=== PATIENT | female | born 1935 | race Caucasian/White ===

== ENCOUNTER 2022-06-23 17:28 | Inpatient (IN) ==
[2022-06-23] MEDS ORDERED: IOPAMIDOL 100 ML BOTTLE IV ONE (17:29)
[2022-06-23] MEDS ORDERED: PANTOPRAZOLE 40 MG VIAL IV ONE (19:04)
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
[2022-06-23] MEDS ORDERED: 0.9 % SODIUM CHLORIDE 250 ML IV SCH ×3 (19:45→20:30)
[2022-06-23 20:16] LABS: POC Calcium, Ionized 1.28 (1.16-1.32); POC Creatinine 0.7 (0.6-1.2); POC Potassium 4.1 (3.3-5.1)
[2022-06-23 20:18] LABS: Basophils # (Auto) 0.07 K/mcL (0.00-0.30); Basophils % (Auto) 0.7 % (0.0-2.0); Eosinophils # (Auto) 0.02 K/mcL (0.00-0.70); Eosinophils % (Auto) 0.2 % (0.0-7.0); Hematocrit 20.3 % (34.1-44.9); Hemoglobin 6.3 g/dL (11.2-15.7); Lymphocytes # (Auto) 2.79 K/mcL (1.50-4.80); Lymphocytes % (Auto) 26.5 % (15.5-49.0); Mean Cell Volume 95.8 fL (80.0-100.0); Mean Platelet Volume 9.9 fL (8.8-12.5); Monocytes # (Auto) 1.08 K/mcL (0.10-0.90); Monocytes % (Auto) 10.3 % (1.0-12.0); Neutrophils % (Auto) 61.1 % (38.0-78.0); Platelet Count 269 K/mcL (140-440); RBC 2.12 M/mcL (3.59-5.38); Red Cell Distribution Width 14.5 % (11.5-14.5); WBC 10.5 K/mcL (4.5-11.0)
[2022-06-23 20:31] LABS: ALT/SGPT 18 U/L (<40); AST/SGOT 21 U/L (<32); Albumin 3.8 gm/dL (3.2-5.2); Alkaline Phosphatase 76 U/L (39-117); Bilirubin,Direct < 0.2 mg/dL (0-0.3); Bilirubin,Total 0.3 mg/dL (0.1-1.0); Globulin 1.9 gm/dL (2.2-3.7)
[2022-06-24] MEDS ORDERED: MELATONIN 3 MG TABLET PO ONE (01:06)
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
[2022-06-24 03:35] LABS: Basophils # (Auto) 0.04 K/mcL (0.00-0.30); Basophils % (Auto) 0.6 % (0.0-2.0); Eosinophils # (Auto) 0.06 K/mcL (0.00-0.70); Eosinophils % (Auto) 0.9 % (0.0-7.0); Hematocrit 25.7 % (34.1-44.9); Hemoglobin 8.6 g/dL (11.2-15.7); Lymphocytes # (Auto) 2.21 K/mcL (1.50-4.80); Lymphocytes % (Auto) 32.3 % (15.5-49.0); Mean Cell Volume 90.2 fL (80.0-100.0); Mean Corpuscular HGB Conc 33.5 g/dL (31.0-36.0); Mean Platelet Volume 9.2 fL (8.8-12.5); Monocytes # (Auto) 0.84 K/mcL (0.10-0.90); Monocytes % (Auto) 12.3 % (1.0-12.0); Platelet Count 191 K/mcL (140-440); RBC 2.85 M/mcL (3.59-5.38); WBC 6.8 K/mcL (4.5-11.0)
[2022-06-24 07:15] LABS: Hematocrit 27.4 % (34.1-44.9); Hemoglobin 9.1 g/dL (11.2-15.7)
--- NOTE | 2022-06-24 10:05 | Emergency Department Note ---
Course Course Course Narrative: Patient is an 87-year-old female who was signed out to me by Dr. Mckeon. Patient presented with concerns for GI bleed and anemia. Her hemoglobin was 6.3. Patient was given a transfusion with 2 units of PRBCs. Patient was watched overnight and H&H was repeated multiple times. It was 8.6 and then 9.1. Transfer versus admission was pending at the time of signout. Vital Signs Vital signs: Vital Signs Temperature 98.0 F 06/23/22 17:29 Pulse Rate 120 H 06/23/22 17:29 Respiratory Rate 18 06/23/22 17:29 Blood Pressure 122/67 06/23/22 17:29 Pulse Oximetry (%) 93 06/23/22 17:29 Oxygen Delivery Method Room Air 06/23/22 17:29 Temperature 98.0 F 06/23/22 17:29 Pulse Rate 84 06/24/22 10:43 Respiratory Rate 17 06/23/22 20:46 Blood Pressure 112/66 06/24/22 10:16 Pulse Oximetry (%) 95 06/24/22 10:43 Oxygen Delivery Method Nasal Cannula 06/24/22 05:01 Oxygen Flow Rate (L/min) 1 06/24/22 05:01 MDM MDM Narrative Medical decision making narrative: Narrative: Patient is an 87-year-old female who presented due to GI bleed. At the time of signout plan for where patient would go was pending. I called and spoke to Dr. Mckeon who agreed to perform an endoscopy, but requested a hospitalist admit. I spoke to Dr. Mayer who has agreed to see and evaluate patient for admission. Lab Data 06/24/22 06:31 Labs: Lab Results 06/23/22 06/23/22 06/23/22 Range/Units 19:15 19:15 20:13 WBC 10.5 (4.5-11.0) K/mcL RBC 2.12 L (3.59-5.38) M/mcL Hgb 6.3 L* (11.2-15.7) g/dL Hct 20.3 L* (34.1-44.9) % POC Hct 18.0 L* (36-48) MCV 95.8 (80.0-100.0) fL MCH 29.7 (26.0-34.0) pg MCHC 31.0 (31.0-36.0) g/dL RDW 14.5 (11.5-14.5) % Plt Count 269 (140-440) K/mcL MPV 9.9 (8.8-12.5) fL Immature Gran % (Auto) 1.2 H (0.0-0.5) % Neut % (Auto) 61.1 (38.0-78.0) % Lymph % (Auto) 26.5 (15.5-49.0) % [place] % (Auto) 10.3 (1.0-12.0) % Eos % (Auto) 0.2 (0.0-7.0) % Baso % (Auto) 0.7 (0.0-2.0) % Lymph # (Auto) 2.79 (1.50-4.80) K/mcL [place] # (Auto) 1.08 H (0.10-0.90) K/mcL Eos # (Auto) 0.02 (0.00-0.70) K/mcL Baso # (Auto) 0.07 (0.00-0.30) K/mcL Immature Gran # 0.13 H (0.00-0.05) K/mcl Absolute Neutrophils 6.44 (1.80-8.00) K/mcL POC Sodium 139 (133-145) POC Potassium 4.1 (3.3-5.1) POC Chloride 104 (96-108) POC Total CO2 26.0 (22-30) POC BUN 31 H (6-20) POC Creatinine 0.7 (0.6-1.2) POC Glucose 112 H (70-105) POC WB Ioniz Calcium 1.28 (1.16-1.32) Total Bilirubin 0.3 (0.1-1.0) mg/dL Direct Bilirubin < 0.2 (0-0.3) mg/dL AST 21 (<32) U/L ALT 18 (<40) U/L Alkaline Phosphatase 76 (39-117) U/L Total Protein 5.7 L (5.9-8.4) gm/dL Albumin 3.8 (3.2-5.2) gm/dL Globulin 1.9 L (2.2-3.7) gm/dL 02/28/23 02/28/23 Range/Units 03:04 06:31 WBC 6.8 (4.5-11.0) K/mcL RBC 2.85 L (3.59-5.38) M/mcL Hgb 8.6 L 9.1 L (11.2-15.7) g/dL Hct 25.7 L 27.4 L (34.1-44.9) % POC Hct (36-48) MCV 90.2 (80.0-100.0) fL MCH 30.2 (26.0-34.0) pg MCHC 33.5 (31.0-36.0) g/dL RDW 14.0 (11.5-14.5) % Plt Count 191 (140-440) K/mcL MPV 9.2 (8.8-12.5) fL Immature Gran % (Auto) 0.9 H (0.0-0.5) % Neut % (Auto) 53.0 (38.0-78.0) % Lymph % (Auto) 32.3 (15.5-49.0) % [place] % (Auto) 12.3 H (1.0-12.0) % Eos % (Auto) 0.9 (0.0-7.0) % Baso % (Auto) 0.6 (0.0-2.0) % Lymph # (Auto) 2.21 (1.50-4.80) K/mcL [place] # (Auto) 0.84 (0.10-0.90) K/mcL Eos # (Auto) 0.06 (0.00-0.70) K/mcL Baso # (Auto) 0.04 (0.00-0.30) K/mcL Immature Gran # 0.06 H (0.00-0.05) K/mcl Absolute Neutrophils 3.63 (1.80-8.00) K/mcL POC Sodium (133-145) POC Potassium (3.3-5.1) POC Chloride (96-108) POC Total CO2 (22-30) POC BUN (6-20) POC Creatinine (0.6-1.2) POC Glucose (70-105) POC WB Ioniz Calcium (1.16-1.32) Total Bilirubin (0.1-1.0) mg/dL Direct Bilirubin (0-0.3) mg/dL AST (<32) U/L ALT (<40) U/L Alkaline Phosphatase (39-117) U/L Total Protein (5.9-8.4) gm/dL Albumin (3.2-5.2) gm/dL Globulin (2.2-3.7) gm/dL Discharge Plan Patient/Caregiver Discharge Instructions Pt seen by DAYCARE PROVIDER/PA only: Yes Clinical Impression: Acute upper gastrointestinal bleeding, ABLA (acute blood loss anemia), Hypotension Patient Disposition: Xfer As Inpt ([facility]) Follow up with: Shantal Rodrigez DO [Primary Care Provider] - Prescriptions: No Action pravastatin 40 mg tablet 40 mg PO QHS Qty: 90 1RF lisinopril 40 mg tablet 40 mg PO QDAY Qty: 90 1RF amlodipine 5 mg tablet 5 mg PO QDAY Qty: 90 1RF naproxen 500 mg tablet 250 mg PO BID PRN (Reason: Back Pain) aspirin 81 mg tablet,delayed release (DR/EC) 81 mg PO QDAY calcium carbonate 600 mg (1,500 mg) tablet 600 mg PO BID cholecalciferol (vitamin D3) 400 unit tablet 400 unit PO QDAY multivitamin 1 each PO QDAY gabapentin 100 mg capsule See Rx Instructions PO QDAY Qty: 90 2RF Rx Instructions: Take 1 cap QHS for 3 days Take 1 cap BID for 3 days, as tolerated Take 1 cap TID for 3 days, as tolerated acetaminophen [Tylenol] 325 mg tablet 325 mg PO Q6H PRN (Reason: Back Pain) tramadol 50 mg tablet 50 mg PO BID PRN (Reason: pain) Qty: 60 2RF famotidine [Pepcid] 20 mg tablet 20 mg PO BID Qty: 60 0RF pantoprazole [Protonix] 20 mg tablet,delayed release (DR/EC) 40 mg PO BID Qty: 120 0RF
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
[2022-06-24] MEDS ORDERED: ONDANSETRON 4 MG/2 ML VIAL IV PRN (13:58)
[2022-06-24] MEDS ORDERED: ACETAMINOPHEN 325 MG TABLET PO PRN (14:01)
[2022-06-24] MEDS: DEXTROSE 5%-LR 1,000 ML IV SCH (14:19)
[2022-06-24] MEDS ORDERED: 0.9 % SODIUM CHLORIDE 250 ML IV SCH (15:45)
[2022-06-24] MEDS: 0.9 % SODIUM CHLORIDE 10 ML SYRINGE IV SCH ×2 (15:45→20:24)
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
[2022-06-24] MEDS: PANTOPRAZOLE 40 MG VIAL IV SCH (16:27)
[2022-06-24] MEDS: SUCRALFATE 1 GM/10 ML ORAL.SUSP PO SCH ×2 (16:27→23:15)
--- NOTE | 2022-06-24 16:42 | XRay Report ---
CLINICAL INFORMATION: Preop COMPARISON: 06/21/2022 TECHNIQUE: Portable FINDINGS: Borderline cardiomegaly is unchanged. Moderate hiatal hernia again noted. Remaining mediastinum and pulmonary vessels are unremarkable. The lungs are clear. There are no effusions. IMPRESSION: No acute disease. Interpreted and Authenticated by: Kishore Ann 06/24/22
[2022-06-24 16:53] LABS: Basophils # (Auto) 0.06 K/mcL (0.00-0.30); Basophils % (Auto) 0.9 % (0.0-2.0); Eosinophils # (Auto) 0.06 K/mcL (0.00-0.70); Eosinophils % (Auto) 0.9 % (0.0-7.0); Hematocrit 27.1 % (34.1-44.9); Hemoglobin 9.1 g/dL (11.2-15.7); Lymphocytes # (Auto) 1.78 K/mcL (1.50-4.80); Lymphocytes % (Auto) 27.6 % (15.5-49.0); Mean Cell Volume 90.3 fL (80.0-100.0); Mean Corpuscular HGB Conc 33.6 g/dL (31.0-36.0); Mean Platelet Volume 9.3 fL (8.8-12.5); Monocytes # (Auto) 0.75 K/mcL (0.10-0.90); Monocytes % (Auto) 11.6 % (1.0-12.0); Neutrophils % (Auto) 57.9 % (38.0-78.0); Platelet Count 206 K/mcL (140-440); Red Cell Distribution Width 14.9 % (11.5-14.5); WBC 6.4 K/mcL (4.5-11.0)
[2022-06-24] MEDS: SIMVASTATIN 20 MG TABLET PO SCH (20:24)
[2022-06-24] MEDS: traMADol 50 MG TABLET PO PRN (22:18)
[2022-06-25] MEDS: DEXTROSE 5%-LR 1,000 ML IV SCH ×3 (03:40→21:01)
[2022-06-25] MEDS: 0.9 % SODIUM CHLORIDE 10 ML SYRINGE IV SCH ×3 (05:31→21:01)
[2022-06-25] MEDS: SUCRALFATE 1 GM/10 ML ORAL.SUSP PO SCH ×4 (05:31→23:15)
[2022-06-25] MEDS: PANTOPRAZOLE 40 MG VIAL IV SCH ×2 (06:48→16:41)
[2022-06-25 06:55] LABS: Basophils # (Auto) 0.03 K/mcL (0.00-0.30); Basophils % (Auto) 0.4 % (0.0-2.0); Eosinophils # (Auto) 0.29 K/mcL (0.00-0.70); Eosinophils % (Auto) 4.3 % (0.0-7.0); Hematocrit 28.5 % (34.1-44.9); Hemoglobin 9.3 g/dL (11.2-15.7); Lymphocytes % (Auto) 28.4 % (15.5-49.0); Mean Cell Volume 92.5 fL (80.0-100.0); Mean Corpuscular HGB Conc 32.6 g/dL (31.0-36.0); Mean Platelet Volume 9.2 fL (8.8-12.5); Monocytes # (Auto) 0.82 K/mcL (0.10-0.90); Monocytes % (Auto) 12.2 % (1.0-12.0); Neutrophils % (Auto) 53.8 % (38.0-78.0); Platelet Count 213 K/mcL (140-440); RBC 3.08 M/mcL (3.59-5.38); Red Cell Distribution Width 14.8 % (11.5-14.5); WBC 6.7 K/mcL (4.5-11.0)
[2022-06-25 07:36] LABS: Blood Urea Nitrogen 16 mg/dL (8-23); Calcium 8.8 mg/dL (8.6-10.4); Carbon Dioxide 26 mmol/L (22-30); Chloride 104 mmol/L (96-108); Glomerular Filtration Rate 87; Glucose 114 mg/dL (70-105)
[2022-06-25] MEDS: amLODIPine 5 MG TABLET PO SCH (08:34)
[2022-06-25] MEDS: LISINOPRIL 20 MG TABLET PO SCH (08:35)
--- NOTE | 2022-06-25 10:36 | Internal Med Progress Note ---
SUBJECTIVE Subjective Patient information: Note initiated : 06/25/22 at 10:33 am Service Date, if different from initiated Date: [] Patient: Mariella Garsia a 87 y/o F admitted on 06/24/22 for weakness; GI bleed, melena. Chief Complaint: [] Interval history: Ms. 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 PMH also includes HTN, HLD. Pt has been taking NSAIDs for pain. She noted two days of melena. She was seen in her PCPs office and referred to the ED. Workup in the ED notable for Hgb 6.3. Chemistry was unremarkable. She was given Pantoprazole 80 mg IV and PRBC transfusion. ED MD spoke with General Surgery who will perform EGD. Admission was requested. At the time of admission Hgb is up to 9.1. Jun 25, Hgb stable overnight, EGD today with Gen Surg. Constitutional Vitals: Vital Signs Temp Pulse Resp BP Pulse Ox O2 Del Method O2 Flow Rate 97.3 F 70 19 136/82 91 Room Air 1 06/25/22 08:01 06/25/22 06:01 06/25/22 08:01 06/25/22 08:01 06/25/22 06:01 06/25/22 08:01 06/24/22 05:01 Period Temp Pulse Resp BP Sys/Conde Pulse Ox O2 Del Method O2 Flow Rate Last 24 Hr 96.9 F-98.0 F 65-91 14-21 114-153/62-82 90-100 Room Air-Room Air Intake and Output 06/24/22 06/25/22 06/25/22 19:59 03:59 11:59 Intake Total 1510 Output Total 400 600 Balance -400 1510 -600 Weight 77.111 kg 75.931 kg Patient Weight 06/26/22 03:59 Weight 75.931 kg Intake & Output: Intake & Output 06/24/22 06/25/22 06/25/22 19:59 03:59 11:59 Intake Total 1510 Output Total 400 600 Balance -400 1510 -600 Weight 77.111 kg 75.931 kg Intake: IV 1000 Dextrose 5%-Lactated Ringers 1, 1000 000 ml @ 75 mls/hr IV .[id number] [facility] Rx#:[id number] Oral 510 Output: Void Amount 400 600 Other: Meal Dinner Percent of Meal Consumed 75% Feeding Ability Assist with Tray Set Up Urine Appearance Clear Clear Urine Color Yellow Yellow Stool Size Moderate Small Stool Color Black Black Dark Red Blood Dark Red Blood Stool Consistency Soft Formed Formed Cylindrical # Voids 1 # Bowel Movements 1 General appearance: no acute distress Head Head exam: Present atraumatic and normal inspection ENT ENT exam: Present mucous membranes moist Respiratory Respiratory exam: Present normal respiratory exam and CTAB Cardiovascular Cardiovascular exam: Present normal rate and rhythm GI/Abdominal GI/Abdominal exam: Present normal bowel sounds and soft; Absent tenderness Neurological Exam Neurological exam: Present CN II-XII intact and oriented X3 OBJ DATA Labs 06/25/22 05:49 06/25/22 05:49 Labs: Abnormal Lab Results 06/25/22 06/25/22 06/24/22 05:49 05:49 22:35 RBC 3.08 L Hgb 9.3 L 9.9 L Hct 28.5 L POC Hct RDW 14.8 H Immature Gran % (Auto) 0.9 H [place] % (Auto) 12.2 H [place] # (Auto) Immature Gran # 0.06 H Anion Gap 7.0 L POC BUN Creatinine 0.5 L Glucose 114 H POC Glucose Total Protein Globulin 06/24/22 06/24/22 06/24/22 15:57 06:31 03:04 RBC 3.00 L 2.85 L Hgb 9.1 L 9.1 L 8.6 L Hct 27.1 L 27.4 L 25.7 L POC Hct RDW 14.9 H Immature Gran % (Auto) 1.1 H 0.9 H [place] % (Auto) 12.3 H [place] # (Auto) Immature Gran # 0.07 H 0.06 H Anion Gap POC BUN Creatinine Glucose POC Glucose Total Protein Globulin 06/23/22 06/23/22 06/23/22 20:13 19:15 19:15 RBC 2.12 L Hgb 6.3 L* Hct 20.3 L* POC Hct 18.0 L* RDW Immature Gran % (Auto) 1.2 H [place] % (Auto) [place] # (Auto) 1.08 H Immature Gran # 0.13 H Anion Gap POC BUN 31 H Creatinine Glucose POC Glucose 112 H Total Protein 5.7 L Globulin 1.9 L Meds: Medications Acetaminophen (Acetaminophen 325 Mg Tablet) 325 mg PO Q6HP PRN PRN Reason: Back Pain Amlodipine Besylate (Amlodipine 5 Mg Tablet) 5 mg PO QDAY [facility] Last Admin: 06/25/22 08:34 Dose: 5 mg Dextrose/Lactated Ringer's (Dextrose 5%-Lactated Ringers) 1,000 mls @ 75 mls/hr IV .[id number] [facility] Last Admin: 06/25/22 03:40 Dose: 75 mls/hr Lisinopril (Lisinopril 20 Mg Tablet) 40 mg PO DAILY [facility] Last Admin: 06/25/22 08:35 Dose: 40 mg Ondansetron HCl (Ondansetron 4 Mg/2 Ml Vial) 4 mg IV Q6HP PRN PRN Reason: Nausea And Vomiting Pantoprazole Sodium (Pantoprazole 40 Mg Vial) 40 mg IV BIDAC [facility] Last Admin: 06/25/22 06:48 Dose: 40 mg Simvastatin (Simvastatin 20 Mg Tablet) 20 mg PO HS [facility] Last Admin: 06/24/22 20:24 Dose: 20 mg Sodium Chloride (0.9 % Sodium Chloride 10 Ml Syringe) 10 ml IV Q8 [facility] Last Admin: 06/25/22 05:31 Dose: Not Given Sucralfate (Sucralfate 1 Gm/10 Ml Oral.Susp) 1 gm PO Q6 [facility] Last Admin: 06/25/22 05:31 Dose: 1 gm Tramadol HCl (Tramadol 50 Mg Tablet) 50 mg PO BIDP PRN PRN Reason: Pain Last Admin: 06/24/22 22:18 Dose: 50 mg A/P Assessment and plan (1) Melanotic stools: Assessment and plan: - PPI IV BID - Gen Surg to perform EGD - transfuse to Hgb > 7.0 - NPO Status: Acute (2) Blood loss anemia: Assessment and plan: - secondary to GIB - transfuse to hgb > 7.0 Status: Acute (3) Radiculopathy, lumbar region: Assessment and plan: - continue home meds Status: Chronic Time Spent With Patient Time: Total time spent is greater than 50% in coordination of care (as documented) at patient's floor/unit and/or counseling patient:
[2022-06-25] MEDS ORDERED: LIDOCAINE HCL/PF 100 MG/5 ML SYRINGE IV ONE (13:50)
[2022-06-25] MEDS ORDERED: PROPOFOL 200 MG/20 ML VIAL IV ONE (13:50)
--- NOTE | 2022-06-25 13:53 | Internal Med Progress Note ---
SUBJECTIVE Subjective Patient information: Note initiated : 06/25/22 at 1:50 pm Service Date, if different from initiated Date: [] Patient: Mariella Garsia a 87 y/o F admitted on 06/24/22 for weakness; GI bleed, melena. Chief Complaint: [] Interval history: Ms. 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 PMH also includes HTN, HLD. Pt has been taking NSAIDs for pain. She noted two days of melena. She was seen in her PCPs office and referred to the ED. Workup in the ED notable for Hgb 6.3. Chemistry was unremarkable. She was given Pantoprazole 80 mg IV and PRBC transfusion. ED MD spoke with General Surgery who will perform EGD. Admission was requested. At the time of admission Hgb is up to 9.1. Jun 25, Hgb stable overnight, EGD today with Gen Surg. 06/26 Review of Systems: denies headache/fever/chills/nausea/vomiting/chest or abdominal pain/cough/dyspnea/diarrhea. Otherwise see above. PHYSICAL EXAM: General: Alert, Awake, No acute Distress Eyes/N/T: EOMI, no scleral icterus, Head/Neck: neck supple, full ROM, CV: RRR, No murmurs, Pulm: Clear b/l, no wheezing/rhonchi/rales, no respiratory distress Abd: soft, nontender, +BS x4 Ext: no clubbing/cyanosis/edema, nontender Neuro: Alert, no focal deficits, moves all extremities, sensations intact b/l upper/lower Psychiatric: Skin: warm/dry, normal color Constitutional Vitals: Vital Signs Temp Pulse Resp BP Pulse Ox O2 Del Method O2 Flow Rate 97.7 F 84 17 131/71 93 Room Air 1 06/25/22 11:45 06/25/22 11:45 06/25/22 11:45 06/25/22 11:45 06/25/22 11:45 06/25/22 11:45 06/24/22 05:01 Period Temp Pulse Resp BP Sys/Conde Pulse Ox O2 Del Method O2 Flow Rate Last 24 Hr 96.9 F-98.0 F 65-84 14-23 114-153/62-82 90-98 Room Air-Room Air Intake and Output 06/25/22 06/25/22 06/25/22 03:59 11:59 19:59 Intake Total 1510 Output Total 900 Balance 1510 -900 Weight 77.111 kg 75.931 kg Patient Weight 06/26/22 03:59 Weight 75.931 kg Intake & Output: Intake & Output 06/25/22 06/25/22 06/25/22 03:59 11:59 19:59 Intake Total 1510 Output Total 900 Balance 1510 -900 Weight 77.111 kg 75.931 kg Intake: IV 1000 Dextrose 5%-Lactated Ringers 1, 1000 000 ml @ 75 mls/hr IV .[id number] [facility] Rx#:[id number] Oral 510 Output: Void Amount 900 Other: Urine Appearance Clear Urine Color Yellow Stool Size Small Stool Color Black Dark Red Blood Stool Consistency Formed Cylindrical # Voids 1 # Bowel Movements 1 OBJ DATA Labs 06/25/22 05:49 06/25/22 05:49 Labs: Abnormal Lab Results 06/25/22 06/25/22 06/24/22 05:49 05:49 22:35 RBC 3.08 L Hgb 9.3 L 9.9 L Hct 28.5 L POC Hct RDW 14.8 H Immature Gran % (Auto) 0.9 H [place] % (Auto) 12.2 H [place] # (Auto) Immature Gran # 0.06 H Anion Gap 7.0 L POC BUN Creatinine 0.5 L Glucose 114 H POC Glucose Total Protein Globulin 06/24/22 06/24/22 06/24/22 15:57 06:31 03:04 RBC 3.00 L 2.85 L Hgb 9.1 L 9.1 L 8.6 L Hct 27.1 L 27.4 L 25.7 L POC Hct RDW 14.9 H Immature Gran % (Auto) 1.1 H 0.9 H [place] % (Auto) 12.3 H [place] # (Auto) Immature Gran # 0.07 H 0.06 H Anion Gap POC BUN Creatinine Glucose POC Glucose Total Protein Globulin 06/23/22 06/23/22 06/23/22 20:13 19:15 19:15 RBC 2.12 L Hgb 6.3 L* Hct 20.3 L* POC Hct 18.0 L* RDW Immature Gran % (Auto) 1.2 H [place] % (Auto) [place] # (Auto) 1.08 H Immature Gran # 0.13 H Anion Gap POC BUN 31 H Creatinine Glucose POC Glucose 112 H Total Protein 5.7 L Globulin 1.9 L Meds: Medications Acetaminophen (Acetaminophen 325 Mg Tablet) 325 mg PO Q6HP PRN PRN Reason: Back Pain Amlodipine Besylate (Amlodipine 5 Mg Tablet) 5 mg PO QDAY [facility] Last Admin: 06/25/22 08:34 Dose: 5 mg Dextrose/Lactated Ringer's (Dextrose 5%-Lactated Ringers) 1,000 mls @ 75 mls/hr IV .[id number] [facility] Last Admin: 06/25/22 03:40 Dose: 75 mls/hr Lisinopril (Lisinopril 20 Mg Tablet) 40 mg PO DAILY [facility] Last Admin: 06/25/22 08:35 Dose: 40 mg Ondansetron HCl (Ondansetron 4 Mg/2 Ml Vial) 4 mg IV Q6HP PRN PRN Reason: Nausea And Vomiting Pantoprazole Sodium (Pantoprazole 40 Mg Vial) 40 mg IV BIDAC [facility] Last Admin: 06/25/22 06:48 Dose: 40 mg Simvastatin (Simvastatin 20 Mg Tablet) 20 mg PO HS [facility] Last Admin: 06/24/22 20:24 Dose: 20 mg Sodium Chloride (0.9 % Sodium Chloride 10 Ml Syringe) 10 ml IV Q8 [facility] Last Admin: 06/25/22 05:31 Dose: Not Given Sucralfate (Sucralfate 1 Gm/10 Ml Oral.Susp) 1 gm PO Q6 [facility] Last Admin: 06/25/22 05:31 Dose: 1 gm Tramadol HCl (Tramadol 50 Mg Tablet) 50 mg PO BIDP PRN PRN Reason: Pain Last Admin: 06/24/22 22:18 Dose: 50 mg A/P Narrative A/P Narrative: Assessment and plan *GIB(Melanotic stools): -PPI IV BID, d/c home ibuprofen - Gen Surg to perform EGD - transfuse to Hgb > 7.0 - NPO *acute Blood loss anemia: secondary to GIB - transfuse to hgb > 7.0 *GERD: On PPI *Radiculopathy, lumbar region: - continue home meds *HTN/HLD: On amlodipine and lisinopril and statin *ppx: SCD Time Spent With Patient Time: Total time spent is greater than 50% in coordination of care (as documented) at patient's floor/unit and/or counseling patient:
--- NOTE | 2022-06-25 14:13 | Brief Operative Note ---
Brief Operative Note Date of procedure: 06/25/22 Pre-op diagnosis: Upper GI bleeding; acute blood loss anemia Post-op diagnosis: other (Acute duodenal bulb ulcer; acute erosive antral gastritis) Procedure: Esophagogastroduodenoscopy Grafts/Implants: No Anesthesia: MAC Findings: Acute erosive changes of antrum Moderate duodenal inflammation Large ulcer crater duodenal bulb No active bleeding Complications: none Surgeon: Jordana Mckeon Estimated blood loss (cc): 0 Specimens Removed/Pathology: none sent Condition: stable Disposition: ICU
[2022-06-25] MEDS: traMADol 50 MG TABLET PO PRN (21:00)
[2022-06-25] MEDS: SIMVASTATIN 20 MG TABLET PO SCH (21:01)
[2022-06-26] MEDS: DEXTROSE 5%-LR 1,000 ML IV SCH ×2 (05:13→08:20)
[2022-06-26] MEDS: SUCRALFATE 1 GM/10 ML ORAL.SUSP PO SCH ×4 (05:13→23:50)
[2022-06-26] MEDS: 0.9 % SODIUM CHLORIDE 10 ML SYRINGE IV SCH ×3 (05:13→20:27)
[2022-06-26 06:27] LABS: Basophils # (Auto) 0.03 K/mcL (0.00-0.30); Basophils % (Auto) 0.5 % (0.0-2.0); Eosinophils # (Auto) 0.29 K/mcL (0.00-0.70); Hematocrit 28.3 % (34.1-44.9); Lymphocytes # (Auto) 1.31 K/mcL (1.50-4.80); Lymphocytes % (Auto) 22.6 % (15.5-49.0); Mean Corpuscular HGB Conc 31.8 g/dL (31.0-36.0); Mean Platelet Volume 9.6 fL (8.8-12.5); Monocytes # (Auto) 0.72 K/mcL (0.10-0.90); Monocytes % (Auto) 12.4 % (1.0-12.0); Neutrophils % (Auto) 58.8 % (38.0-78.0); Platelet Count 194 K/mcL (140-440); RBC 2.98 M/mcL (3.59-5.38); Red Cell Distribution Width 14.9 % (11.5-14.5); WBC 5.8 K/mcL (4.5-11.0)
--- NOTE | 2022-06-26 06:49 | EKG ---
[facility] Test Date: 2022-06-24 Pat Name: Mariella Garsia Department: ICU Room: 118 Gender: Female Brand Mgr: : [id number] Requested By: Jordana Mckeon Order Number: [id number] Reading MD: Bryce Elias Measurements Intervals [place] Rate: 84 P: 13 WV: 185 QRS: -11 QRSD: 81 T: -1 QT: 356 QTc: 422 Interpretive Statements Sinus rhythm Inferior infarct, old Electronically Signed On 06-26-2022 6:49:22 PST by Bryce Elias /[email or web address]/[id number]
--- NOTE | 2022-06-26 07:54 | Internal Med Progress Note ---
SUBJECTIVE Subjective Patient information: Note initiated : 06/26/22 at 7:50 am Service Date, if different from initiated Date: [] Patient: Mariella Garsia a 87 y/o F admitted on 06/24/22 for weakness; GI bleed, melena. Chief Complaint: [] Interval history: Ms. 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 PMH also includes HTN, HLD. Pt has been taking NSAIDs for pain. She noted two days of melena. She was seen in her PCPs office and referred to the ED. Workup in the ED notable for Hgb 6.3. Chemistry was unremarkable. She was given Pantoprazole 80 mg IV and PRBC transfusion. ED MD spoke with General Surgery who will perform EGD. Admission was requested. At the time of admission Hgb is up to 9.1. Jun 25, Hgb stable overnight, EGD today with Gen Surg. 06/26 Last reported bowel movement yesterday afternoon and black. Nothing reported overnight. Patient had EGD which showed duodenal ulcer and erosive gastritis. Patient started on Carafate in addition to PPI. Hemoglobin 9.0 today. Patient has a little bit of epigastric discomfort. Review of Systems: denies headache/fever/chills/nausea/vomiting/chest or abdominal pain/cough/dyspnea/diarrhea. Otherwise see above. PHYSICAL EXAM General: Alert, Awake, No acute Distress Eyes/N/T: EOMI, no scleral icterus, Head/Neck: neck supple, full ROM, CV: RRR, No murmurs, Pulm: Clear b/l, no wheezing/rhonchi/rales, no respiratory distress Abd: soft, mild epi tender, +BS x4 Ext: no clubbing/cyanosis/edema, nontender Neuro: Alert, no focal deficits, moves all extremities, sensations intact b/l upper/lower Psychiatric: Skin: warm/dry, normal color Constitutional Vitals: Vital Signs Temp Pulse Resp BP Pulse Ox O2 Del Method O2 Flow Rate 97.2 F 82 16 138/67 95 Room Air 4 06/26/22 03:31 06/26/22 03:31 06/26/22 03:31 06/26/22 03:31 06/26/22 03:31 06/26/22 03:31 06/25/22 14:01 Period Temp Pulse Resp BP Sys/Conde Pulse Ox O2 Del Method O2 Flow Rate Last 24 Hr 97.2 F-98.2 F 78-101 10-24 91-147/62-131 93-100 Nasal Cannula- Room Air 4 Intake and Output 06/25/22 06/26/22 06/26/22 19:59 03:59 11:59 Intake Total 1000 300 Output Total 1000 1100 Balance 0 -800 Weight 75.977 kg Intake & Output: Intake & Output 06/25/22 06/26/22 06/26/22 19:59 03:59 11:59 Intake Total 1000 300 Output Total 1000 1100 Balance 0 -800 Weight 75.977 kg Intake: IV 1000 Dextrose 5%-Lactated Ringers 1, 1000 000 ml @ 75 mls/hr IV .[id number] [facility] Rx#:[id number] Oral 300 Output: Void Amount 1000 1100 Other: Urine Appearance Clear Clear Urine Color Yellow Yellow Stool Size Moderate Stool Color Black Stool Consistency Loose # Bowel Movements 1 OBJ DATA Labs 06/26/22 05:22 06/25/22 05:49 Labs: Abnormal Lab Results 06/26/22 06/25/22 06/25/22 05:22 05:49 05:49 RBC 2.98 L 3.08 L Hgb 9.0 L 9.3 L Hct 28.3 L 28.5 L POC Hct RDW 14.9 H 14.8 H Immature Gran % (Auto) 0.7 H 0.9 H [place] % (Auto) 12.4 H 12.2 H Lymph # (Auto) 1.31 L [place] # (Auto) Immature Gran # 0.06 H Anion Gap 7.0 L POC BUN Creatinine 0.5 L Glucose 114 H POC Glucose Total Protein Globulin 06/24/22 06/24/22 06/24/22 22:35 15:57 06:31 RBC 3.00 L Hgb 9.9 L 9.1 L 9.1 L Hct 27.1 L 27.4 L POC Hct RDW 14.9 H Immature Gran % (Auto) 1.1 H [place] % (Auto) Lymph # (Auto) [place] # (Auto) Immature Gran # 0.07 H Anion Gap POC BUN Creatinine Glucose POC Glucose Total Protein Globulin 06/24/22 06/23/22 06/23/22 03:04 20:13 19:15 RBC 2.85 L Hgb 8.6 L Hct 25.7 L POC Hct 18.0 L* RDW Immature Gran % (Auto) 0.9 H [place] % (Auto) 12.3 H Lymph # (Auto) [place] # (Auto) Immature Gran # 0.06 H Anion Gap POC BUN 31 H Creatinine Glucose POC Glucose 112 H Total Protein 5.7 L Globulin 1.9 L 06/23/22 19:15 RBC 2.12 L Hgb 6.3 L* Hct 20.3 L* POC Hct RDW Immature Gran % (Auto) 1.2 H [place] % (Auto) Lymph # (Auto) [place] # (Auto) 1.08 H Immature Gran # 0.13 H Anion Gap POC BUN Creatinine Glucose POC Glucose Total Protein Globulin Meds: Medications Acetaminophen (Acetaminophen 325 Mg Tablet) 325 mg PO Q6HP PRN PRN Reason: Back Pain Amlodipine Besylate (Amlodipine 5 Mg Tablet) 5 mg PO QDAY [facility] Last Admin: 06/25/22 08:34 Dose: 5 mg Dextrose/Lactated Ringer's (Dextrose 5%-Lactated Ringers) 1,000 mls @ 75 mls/hr IV .[id number] [facility] Last Admin: 06/26/22 05:13 Dose: Not Given Lisinopril (Lisinopril 20 Mg Tablet) 40 mg PO DAILY [facility] Last Admin: 06/25/22 08:35 Dose: 40 mg Ondansetron HCl (Ondansetron 4 Mg/2 Ml Vial) 4 mg IV Q6HP PRN PRN Reason: Nausea And Vomiting Pantoprazole Sodium (Pantoprazole 40 Mg Vial) 40 mg IV BIDAC [facility] Last Admin: 06/25/22 16:41 Dose: 40 mg Simvastatin (Simvastatin 20 Mg Tablet) 20 mg PO HS [facility] Last Admin: 06/25/22 21:01 Dose: 20 mg Sodium Chloride (0.9 % Sodium Chloride 10 Ml Syringe) 10 ml IV Q8 [facility] Last Admin: 06/26/22 05:13 Dose: Not Given Sucralfate (Sucralfate 1 Gm/10 Ml Oral.Susp) 1 gm PO Q6 [facility] Last Admin: 06/26/22 05:13 Dose: 1 gm Tramadol HCl (Tramadol 50 Mg Tablet) 50 mg PO BIDP PRN PRN Reason: Pain Last Admin: 06/25/22 21:00 Dose: 50 mg A/P Narrative A/P Narrative: Assessment and plan *GIB(Melanotic stools): -PPI IV BID, d/c home ibuprofen - Gen Surg to perform EGD >> duodenal bulb ulcer and erosive antral gastritis. sucralfate added - transfuse to Hgb > 7.0 -start diet, stop IVF *acute Blood loss anemia: secondary to GIB - transfuse to hgb > 7.0 -hgb currently 9.0 (s/p 2prbc on admit), monitor *GERD: On PPI *Radiculopathy, lumbar region: - continue home meds *HTN/HLD: On amlodipine and lisinopril and statin *ppx: SCD Time Spent With Patient Time: Total time spent is greater than 50% in coordination of care (as documented) at patient's floor/unit and/or counseling patient: Subsequent: Total time with patient: 35 - 49 minutes
[2022-06-26] MEDS: PANTOPRAZOLE 40 MG VIAL IV SCH ×2 (08:05→16:17)
[2022-06-26] MEDS: amLODIPine 5 MG TABLET PO SCH (09:26)
[2022-06-26] MEDS: LISINOPRIL 20 MG TABLET PO SCH (09:27)
--- NOTE | 2022-06-26 11:30 | General Surgery Progress Note ---
SUBJECTIVE Subjective Patient information: Note initiated : 06/26/22 at 11:25 am Service Date, if different from initiated Date: [] Patient: Mariella Garsia 87 y/o F admitted on 06/24/22 for weakness; GI bleed, melena. Chief Complaint: [] Principal diagnosis: Upper GI bleed; duodenal ulcer; blood loss anemia Interval history: Patient has done well throughout the evening. She has tolerated soft diet. Hemoglobin is stable. Patient is transferred to the [facility] service. Constitutional Vitals: Vital Signs Temp Pulse Resp BP Pulse Ox O2 Del Method O2 Flow Rate 97.8 F 83 16 128/73 98 Room Air 4 06/26/22 08:24 06/26/22 08:24 06/26/22 08:24 06/26/22 08:24 06/26/22 08:24 06/26/22 08:24 06/25/22 14:01 Period Temp Pulse Resp BP Sys/Conde Pulse Ox O2 Del Method O2 Flow Rate Last 24 Hr 97.2 F-98.2 F 78-101 10-24 88-147/62-131 93-100 Nasal Cannula- Room Air 4 Intake and Output 06/25/22 06/26/22 06/26/22 19:59 03:59 11:59 Intake Total 2701 794 8634 Output Total 1000 1100 200 Balance 0 -800 922 Weight 167 lb 8 oz Intake & Output: Intake & Output 06/25/22 06/26/22 06/26/22 19:59 03:59 11:59 Intake Total 8614 004 3370 Output Total 1000 1100 200 Balance 0 -800 922 Weight 167 lb 8 oz Intake: IV 1000 1072 Dextrose 5%-Lactated Ringers 1, 1000 1072 000 ml @ 75 mls/hr IV .[id number] [facility] Rx#:[id number] Oral 300 50 Output: Void Amount 1000 1100 200 Other: Meal Breakfast Percent of Meal Consumed 100% Urine Appearance Clear Clear Clear Urine Color Yellow Yellow Yellow Urine Odor Strong Stool Size Moderate Stool Color Black Stool Consistency Loose # Voids 1 # Bowel Movements 1 Neck Neck exam: Present full ROM; Absent tenderness Respiratory Respiratory exam: Present normal respiratory exam and CTAB Cardiovascular Cardiovascular exam: Present normal rate and rhythm, RRR, +S1 and +S2; Absent gallop or JVD GI/Abdominal GI/Abdominal exam: Present normal bowel sounds and soft; Absent distended or tenderness Extremities Exam Extremities exam: Present normal inspection and neurovascular intact Neurological Exam Neurological exam: Present alert and oriented X3; Absent motor sensory deficit Psychiatric Psychiatric exam: Present normal affect and normal mood A/P Assessment and plan (1) Acute duodenal ulcer: Status: Acute (2) Acute upper gastrointestinal bleeding: Status: Acute (3) ABLA (acute blood loss anemia): Status: Acute Plan Patient is doing well. There is no clinical evidence of ongoing bleeding. Hemoglobin has remained stable. Patient is clinically stable and can be transferred to [facility] status. Advance to soft diet Check CBC and inpatient panel in the morning Sepsis Sepsis Identified: No Time Spent With Patient Time: Total time spent is greater than 50% in coordination of care (as documented) at patient's floor/unit and/or counseling patient:
--- NOTE | 2022-06-26 11:39 | Discharge Summary ---
Discharge Provider Provider IMPORTANT FOLLOW-UP INFORMATION FOR PCP: Patient information: Note initiated : 06/26/22 at 11:37 am Service Date, if different from initiated Date: [] Patient: Mariella Garsia a 87 y/o F admitted on 06/24/22 for weakness; GI bleed, melena. Chief Complaint: [] Date of admission: 06/24/22 13:57 Discharge date: 06/27/22 Primary care physician: Shantal Rodrigez DO Consults: 06/24/22 Consult to Physician [CONS] Stat Comment: Consulting Provider: Jordana Mckeon Reason For Exam: Physician to Consult COURSE Hospital Course Hospital course: Interval history: Ms. 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 PMH also includes HTN, HLD. Pt has been taking NSAIDs for pain. She noted two days of melena. She was seen in her PCPs office and referred to the ED. Workup in the ED notable for Hgb 6.3. Chemistry was unremarkable. She was given Pantoprazole 80 mg IV and PRBC transfusion. ED MD spoke with General Surgery who will perform EGD. Admission was requested. At the time of admission Hgb is up to 9.1. Jun 25, Hgb stable overnight, EGD today with Gen Surg. 3/2 Last reported bowel movement yesterday afternoon and black. Nothing reported overnight. Patient had EGD which showed duodenal ulcer and erosive gastritis. Patient started on Carafate in addition to PPI. Hemoglobin 9.0 today. Patient has a little bit of epigastric discomfort. 3/3 No further bleeding overnight. Patient doing well. Stable for discharge. Assessment and plan *upper GIB: 2/2 duodenal bulb ulcer and erosive antral gastritis -PPI BID and sucralfate, d/c home ibuprofen *acute Blood loss anemia: secondary to GIB *GERD: On PPI *Radiculopathy, lumbar region: *HTN/HLD: On amlodipine and lisinopril and statin Discharge diagnosis: Upper GI bleed from peptic ulcer and gastritis acute blood loss anemia Secondary discharge diagnosis: GERD radiculopathy hypertension hyperlipidemia Time Spent with Patient Time attestation: Total time spent providing and/or coordinating discharge services: Time spent: Greater than 30 minutes EXAM Constitutional Vitals: Temp Pulse Resp BP Pulse Ox O2 Del Method O2 Flow Rate 97.8 F 83 16 128/73 98 Room Air 4 06/26/22 08:24 06/26/22 08:24 06/26/22 08:24 06/26/22 08:24 06/26/22 08:24 06/26/22 08:24 06/25/22 14:01 Discharge Data Data Completed and Pending Labs on day of discharge: Labs from last 24 hours 06/26/22 05:22 WBC 5.8 RBC 2.98 L Hgb 9.0 L Hct 28.3 L MCV 95.0 MCH 30.2 MCHC 31.8 RDW 14.9 H Plt Count 194 MPV 9.6 Immature Gran % (Auto) 0.7 H Neut % (Auto) 58.8 Lymph % (Auto) 22.6 [place] % (Auto) 12.4 H Eos % (Auto) 5.0 Baso % (Auto) 0.5 Lymph # (Auto) 1.31 L [place] # (Auto) 0.72 Eos # (Auto) 0.29 Baso # (Auto) 0.03 Immature Gran # 0.04 Absolute Neutrophils 3.41 Discharge Plan Patient/Caregiver Discharge Instructions Activity: increase activity as tolerated Diet: Regular Diet Instructions: Sucralfate (By mouth), Peptic Ulcer (DC), Gastritis (DC), Gastrointestinal Bleeding (DC), Anemia (DC), Upper Endoscopy (DC) Activity Restrictions/Additional Instructions: Increase activity as tolerated. May resume regular diet as tolerated. Call your physician for sustained fever greater than 100.5, increase in weakness, loss of energy, blood in your bowel movement, or any questions/concerns. This discharge packet is provided to you to help keep you informed about your care. We want to ensure you get everything you need when you go home. You will also be receiving a call from us in a few days to follow up with you and see how you are doing since your discharge. This gives us a chance to listen to any concerns you maybe experiencing since you were discharged or any additional needs you may have, as well as providing us feedback on your care experience. We strive to always provide excellent care and thank you for your feedback and for choosing [facility]. Prescriptions: New sucralfate 100 mg/mL Suspension 1 gm PO Q6 Qty: 112 0RF Continued pravastatin 40 mg tablet 40 mg PO QHS Qty: 90 1RF lisinopril 40 mg tablet 40 mg PO QDAY Qty: 90 1RF amlodipine 5 mg tablet 5 mg PO QDAY Qty: 90 1RF calcium carbonate 600 mg (1,500 mg) tablet 600 mg PO BID PRN (Reason: Indigestion) cholecalciferol (vitamin D3) 400 unit tablet 400 unit PO QDAY multivitamin 1 each PO QDAY gabapentin 100 mg capsule See Rx Instructions PO QDAY Qty: 90 2RF Rx Instructions: Take 1 cap QHS for 3 days Take 1 cap BID for 3 days, as tolerated Take 1 cap TID for 3 days, as tolerated acetaminophen [Tylenol] 325 mg tablet 325 mg PO Q6H PRN (Reason: Back Pain) tramadol 50 mg tablet 50 mg PO BID PRN (Reason: pain) Qty: 60 2RF pantoprazole [Protonix] 20 mg tablet,delayed release (DR/EC) 40 mg PO BID Qty: 120 0RF Discontinued famotidine [Pepcid] 20 mg tablet 20 mg PO BID Qty: 60 0RF ibuprofen 200 mg Tablet 400 mg PO Q6H PRN (Reason: Pain) No Action aspirin 81 mg tablet,delayed release (DR/EC) 81 mg PO QDAY Follow Up Plan Follow up with: Jordana Mckeon MD [Physician] - (for eventual f/u EGD. The office will call you with an appointment date/time. If you do not hear from them by ThursdayJuly 01, please call them for an appointment.) Shantal Rodrigez, [Primary Care Provider] - (This office will call you for follow up. If you do not hear from them by Thursday, please give them a call.) Patient Disposition: Home, Self-Care Overall status at discharge: patient is progressing back to baseline Discharge Orders: Discharge Order (Routine); Ordered 06/27/22 Ordered By: Kosta Cadena Discharge Comment: Patient stable at d/c, daughter driving home
[2022-06-26] MEDS: SIMVASTATIN 20 MG TABLET PO SCH (20:26)
[2022-06-27] MEDS: 0.9 % SODIUM CHLORIDE 10 ML SYRINGE IV SCH (05:33)
[2022-06-27] MEDS: SUCRALFATE 1 GM/10 ML ORAL.SUSP PO SCH ×2 (05:33→11:39)
[2022-06-27 07:43] LABS: Hematocrit 27.8 % (34.1-44.9); Hemoglobin 8.8 g/dL (11.2-15.7)
[2022-06-27 08:22] LABS: ALT/SGPT 12 U/L (<40); AST/SGOT 13 U/L (<32); Albumin 3.1 gm/dL (3.2-5.2); Albumin/Globulin Ratio 1.6 (1.0-2.3); Alkaline Phosphatase 91 U/L (39-117); Bilirubin,Direct < 0.2 mg/dL (0-0.3); Bilirubin,Total 0.4 mg/dL (0.1-1.0); Blood Urea Nitrogen 9 mg/dL (8-23); Calcium 8.7 mg/dL (8.6-10.4); Carbon Dioxide 27 mmol/L (22-30); Chloride 103 mmol/L (96-108); Globulin 1.9 gm/dL (2.2-3.7); Glomerular Filtration Rate 87; Glucose 94 mg/dL (70-105); Lactate Dehydrogenase 153 U/L (135-225); Phosphorous 3.3 mg/dL (2.5-4.5); Triglycerides 78 mg/dL (<150); Uric Acid 4.1 mg/dL (2.5-8.0)
[2022-06-27] MEDS: LISINOPRIL 20 MG TABLET PO SCH (10:42)
[2022-06-27] MEDS: amLODIPine 5 MG TABLET PO SCH (10:42)
[2022-06-27] MEDS: PANTOPRAZOLE 40 MG VIAL IV SCH (10:44)
--- NOTE | 2022-07-02 11:22 | EGD Procedure Note ---
DATE OF PROCEDURE: 06/25/2022 PREOPERATIVE DIAGNOSES: Upper gastrointestinal bleeding, acute blood loss anemia. POSTOPERATIVE DIAGNOSES: Moderately-severe acute erosive gastritis and acute duodenal ulcer. PROCEDURE: Esophagogastroduodenoscopy. SURGEON: Jordana Mckeon M.D. FINDINGS: Acute erosive changes of the antrum, moderate duodenal inflammation, large ulcer crater of the duodenal bulb without active bleeding. DESCRIPTION OF PROCEDURE: Under general anesthesia, the patient turned to the left lateral decubitus position. Bite block was placed. Timeout procedure was carried out as per protocol. Scope was introduced through the bite block into the esophagus. The esophagus was normal down to the GE junction. There was no inflammation and there was no bleeding. The fundus was unremarkable. There was mild inflammation of the body of the stomach, but acute severe erosive changes of the antrum. Pylorus was not deformed and opened appropriately. In the duodenal bulb, there was a very large ulcer crater with early fibrinous exudate and without active bleeding. The second and third portions of the duodenum showed inflammation, but appeared to be healing. The ulcer was not biopsied. The scope was pulled back into the stomach. Retroflex view was carried out. The upper stomach and the GE junction was unremarkable. Air was suctioned from the stomach and the scope was removed. The patient tolerated the procedure well. She was monitored and then returned to the ICU in satisfactory condition. LCS:lise Job ID: [id number] Doc ID: [id number] Jordana Mckeon M.D.
== END 2022-06-27 11:58 | disposition home or self-care (01) | DRG 378 ==
LOC: ED 17:28 → ICU 06-24 13:57 → MEDSUR 06-26 16:49
PROVIDERS: ADMIT Internal Medicine; ATTEND Internal Medicine

== ENCOUNTER 2022-09-01 16:32 | Inpatient (IN) ==
[2022-09-01] MEDS ORDERED: IOPAMIDOL 100 ML BOTTLE IV ONE (16:33)
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
[2022-09-01] MEDS ORDERED: ONDANSETRON 4 MG/2 ML VIAL IV ONE (16:42)
[2022-09-01] MEDS ORDERED: 0.9 % SODIUM CHLORIDE 1,000 ML IV ONE (16:42)
--- NOTE | 2022-09-01 17:12 | XRay Report ---
CLINICAL INFORMATION: Tachycardia COMPARISON: None. TECHNIQUE: Portable FINDINGS: The heart size, mediastinum and pulmonary vessels are unremarkable. Minor basilar atelectasis noted. There are no effusions. Severe bilateral glenohumeral degeneration appreciated. IMPRESSION: No acute cardiopulmonary disease Interpreted and Authenticated by: Kishore Ann 09/01/22
[2022-09-01 17:24] LABS: POC Calcium, Ionized 1.21 (1.16-1.32); POC Creatinine 0.6 (0.6-1.2); POC Potassium 3.9 (3.3-5.1)
[2022-09-01 18:03] LABS: Basophils # (Auto) 0.03 K/mcL (0.00-0.30); Basophils % (Auto) 0.2 % (0.0-2.0); Eosinophils # (Auto) 0.01 K/mcL (0.00-0.70); Eosinophils % (Auto) 0.1 % (0.0-7.0); Hematocrit 37.4 % (34.1-44.9); Lymphocytes # (Auto) 0.25 K/mcL (1.50-4.80); Lymphocytes % (Auto) 1.9 % (15.5-49.0); Mean Corpuscular HGB Conc 29.4 g/dL (31.0-36.0); Monocytes # (Auto) 1.24 K/mcL (0.10-0.90); Monocytes % (Auto) 9.6 % (1.0-12.0); Neutrophils % (Auto) 87.7 % (38.0-78.0); Platelet Count 181 K/mcL (140-440); RBC 4.56 M/mcL (3.59-5.38); Red Cell Distribution Width 16.4 % (11.5-14.5); WBC 12.9 K/mcL (4.5-11.0)
[2022-09-01] MEDS ORDERED: ACETAMINOPHEN 1,000 MG/100 ML BAG IV ONE (18:14)
[2022-09-01] MEDS ORDERED: IPRATROPIUM/ALBUTEROL 3 ML AMPUL.NEB NEB ONE (21:18)
[2022-09-01] MEDS ORDERED: cefTRIAXone 1 GM VIAL IV ONE (22:06)
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
[2022-09-01] MEDS ORDERED: VANCOMYCIN 1,250 MG in 0.9 % SODIUM CHLORIDE 500 ML IV SCH (23:49)
[2022-09-01] MEDS ORDERED: 0.9 % SODIUM CHLORIDE 1,000 ML IV SCH (23:49)
[2022-09-01] MEDS ORDERED: ONDANSETRON 4 MG/2 ML VIAL IV PRN (23:49)
[2022-09-01] MEDS ORDERED: ACETAMINOPHEN 325 MG TABLET PO PRN (23:49)
[2022-09-01] MEDS ORDERED: VANCOMYCIN PER PHARMACY IV ONE (23:49)
[2022-09-01 23:59] LABS: ALT/SGPT 15 U/L (<40); AST/SGOT 16 U/L (<32); Albumin 3.4 gm/dL (3.2-5.2); Alkaline Phosphatase 94 U/L (39-117); Bilirubin,Direct < 0.2 mg/dL (0-0.3); Bilirubin,Total 0.4 mg/dL (0.1-1.0); Globulin 2.2 gm/dL (2.2-3.7)
[2022-09-02] MEDS ORDERED: cefTRIAXone 1 GM VIAL ONE
--- NOTE | 2022-09-02 03:31 | Cat Scan Report ---
CLINICAL INFORMATION: Tachycardia with hypoxia COMPARISON: 06/14/2022 TECHNIQUE: 80ml of Isovue-370 were injected intravenously. Using SmartPrep to maximize pulmonary artery opacification, .625mm helical slices were obtained from the lung apices through the lung bases. Following reconstruction, 2.5 mm sagittal, coronal, and axial reformations were processed. The exam was reviewed at mediastinal, lung, and bone windows. The exam was performed using radiation dose optimization techniques including, but not limited to, automated exposure control, adjustment of the mA and/or kV according to patient size and use of iterative reconstruction technique. FINDINGS: Pulmonary parenchymal windows show elevated lung volumes and mild dilatation wall thickening of the bronchi compatible with bronchitis or asthma. Mild vague groundglass airspace disease is seen in both posterior upper and lower lobes which is increased since the previous exam. More classic subsegmental atelectasis in the posterior dependent lower lobe has progressed as well. Pleural spaces are normal. Mediastinal windows show the heart is normal in size. The pulmonary arteries are well-opacified and normal diameter-no evidence of embolus. Thoracic aorta is normal diameter and well-opacified. No mediastinal hemorrhage or other posttraumatic change. No adenopathy. Moderate hiatal hernia noted.. Thyroid is unremarkable. Bone windows show mild chronic wedging of the mid lower thoracic vertebral bodies. Severe bilateral glenohumeral degeneration appreciated with joint effusions are stable. Images should the upper abdomen show mild dilatation of common bile duct is 9 mm related to post cholecystectomy state. Visualized kidneys and adrenal glands spleen and liver and pancreas are normal. IMPRESSION: 1. No evidence of pulmonary embolus. Mild patchy groundglass airspace disease has developed in both posterior upper and lower lobes could indicate edema or developing infiltrate. Suggest short-term plain film follow-up 2. Mild chronic bronchitis or asthma. Subsegmental atelectasis both posterior lower lobes. 3. Moderate hiatal hernia. 4. Mild chronic wedging mid lower thoracic vertebral bodies. Interpreted and Authenticated by: Kishore Ann 09/02/22
[2022-09-02 05:42] LABS: Appearance,Urine HAZY (Clear); Bacteria,Urine FEW /hpf (0); Bilirubin,Urine Negative (Negative); Color,Urine YELLOW; Culture Indicated,Urine yes; Glucose,Urine (UA) Negative (Negative); Ketones,Urine Negative (Negative); Leukocyte Esterase,Urine 75 /uL (Negative); Mucus,Urine FEW /hpf; Nitrate,Urine Negative (Negative); Protein,Urine Negative (Negative); Specific Gravity,Urine 1.038 (1.000-1.035); Urine Blood Negative (Negative); Urine RBC 3 /hpf (0-3); Urine Squamous Epithelial Cell 2 /hpf (0-4); Urine WBC 21 /hpf (0-4); Urobilinogen,Urine Negative
[2022-09-02 06:23] LABS: Basophils # (Auto) 0.03 K/mcL (0.00-0.30); Basophils % (Auto) 0.2 % (0.0-2.0); Eosinophils # (Auto) 0 K/mcL (0.00-0.70); Eosinophils % (Auto) 0 % (0.0-7.0); Hematocrit 28.8 % (34.1-44.9); Hemoglobin 8.6 g/dL (11.2-15.7); Lymphocytes % (Auto) 7.4 % (15.5-49.0); Mean Cell Volume 81.1 fL (80.0-100.0); Mean Corpuscular HGB Conc 29.9 g/dL (31.0-36.0); Mean Platelet Volume 10.2 fL (8.8-12.5); Monocytes # (Auto) 1.25 K/mcL (0.10-0.90); Monocytes % (Auto) 9.2 % (1.0-12.0); Neutrophils % (Auto) 82.5 % (38.0-78.0); Platelet Count 154 K/mcL (140-440); RBC 3.55 M/mcL (3.59-5.38); Red Cell Distribution Width 16.3 % (11.5-14.5); WBC 13.5 K/mcL (4.5-11.0)
[2022-09-02] MEDS ORDERED: VANCOMYCIN PER PHARMACY IV SCH (06:30)
[2022-09-02 06:53] LABS: ALT/SGPT 14 U/L (<40); AST/SGOT 15 U/L (<32); Albumin/Globulin Ratio 1.4 (1.0-2.3); Alkaline Phosphatase 90 U/L (39-117); Bilirubin,Direct < 0.2 mg/dL (0-0.3); Bilirubin,Total 0.3 mg/dL (0.1-1.0); Blood Urea Nitrogen 16 mg/dL (8-23); Calcium 8.8 mg/dL (8.6-10.4); Carbon Dioxide 25 mmol/L (22-30); Chloride 108 mmol/L (96-108); Globulin 2.2 gm/dL (2.2-3.7); Glomerular Filtration Rate 82; Glucose 102 mg/dL (70-105); Lactate Dehydrogenase 160 U/L (135-225); Phosphorous 3.1 mg/dL (2.5-4.5); Triglycerides 34 mg/dL (<150); Uric Acid 3.2 mg/dL (2.5-8.0)
[2022-09-02] MEDS ORDERED: CALCIUM CARBONATE 500 MG TAB.CHEW PO PRN (07:38)
[2022-09-02] MEDS ORDERED: traMADol 50 MG TABLET PO PRN (07:39)
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
[2022-09-02] MEDS: 0.9 % SODIUM CHLORIDE 10 ML SYRINGE IV SCH ×3 (08:38→21:20)
[2022-09-02] MEDS: CEFEPIME 2 GM VIAL IV SCH ×3 (08:47→21:20)
[2022-09-02] MEDS: SUCRALFATE 1 GM/10 ML ORAL.SUSP PO SCH ×4 (08:47→20:33)
[2022-09-02] MEDS: PANTOPRAZOLE 40 MG TABLET PO SCH ×2 (08:47→20:33)
[2022-09-02] MEDS: DOCUSATE SODIUM 100 MG CAPSULE PO SCH ×2 (08:47→20:33)
[2022-09-02] MEDS: GABAPENTIN 300 MG CAPSULE PO SCH ×3 (08:47→20:33)
[2022-09-02] MEDS: amLODIPine 5 MG TABLET PO SCH (08:47)
[2022-09-02] MEDS: ENOXAPARIN 40 MG/0.4 ML SYRINGE SQ SCH (08:48)
[2022-09-02] MEDS: VITAMIN D3 10 MCG TABLET PO SCH (08:48)
--- NOTE | 2022-09-02 11:46 | Internal Med Progress Note ---
SUBJECTIVE Subjective Patient information: Note initiated : 09/02/22 at 11:41 am Service Date, if different from initiated Date: [] Patient: Mariella Garsia 87 y/o F admitted on 09/01/22 for weakness, shakey. Chief Complaint: [] Interval history: Ms. Garsia is a 87 year old female with a history of hypertension, hyperlipidemia, peptic ulcer disease, Clostridium difficile, prior vertebral compression fractures, lumbar spinal stenosis who presented to the emergency department with a chief complaint of nausea, generalized weakness and chills. In the emergency department, the patient was found to have a fever and tachycardia. She also had an oxygen requirement of about 2 L/min. Work-up consisted of CBC which showed leukocytosis and increased neutrophils, renal function panel and LFTs were essentially normal, urinalysis was positive for leukocyte esterase, WBC and few bacteria, negative for urine nitrate. Chest x-ray 1 view did not show any acute cardiopulmonary disease. A CTA chest did not show any evidence of pulmonary embolism however there was mild patchy ground glass airspace disease that had developed in the posterior upper and lower lobes that could indicate edema or developing infiltrate. Patient was given IV fluid and a dose of ceftriaxone in the emergency department. Hospital medicine was consulted for admission. 09/02 Patient continued to have high-grade temperatures overnight, fevers seem to have resolved this morning. Respiratory status has improved however the patient continues on supplemental oxygen at 2 L/min. SARS-CoV-2 PCR not detected, still pending are influenza, RSV, parainfluenza, human metapneumovirus PCR results. Leukocytosis increased modestly. Renal function and LFTs normal today. Urine and blood cultures pending. Continues on vancomycin IV per pharmacy and cefepime. Physical exam Head: Atraumatic, normal inspection. Eyes: normal appearance, no scleral icterus. Neck: full ROM Respiratory: 2 L/min oxygen supplementation, no respiratory distress. Cardiovascular: normal rate and rhythm, S1, S2. GI/Abdominal: soft, nontender, no guarding. Extremities: full range of motion, nontender. Neurological: CN II-XII intact, intact motor, intact sensation. Psychiatric: normal mood. Skin: warm, normal color Constitutional Vitals: Vital Signs Temp Pulse Resp BP Pulse Ox O2 Del Method O2 Flow Rate 98.8 F 62 18 97/55 100 Nasal Cannula 2 09/02/22 08:00 09/02/22 08:00 09/02/22 08:00 09/02/22 08:00 09/02/22 08:00 09/02/22 08:00 09/02/22 08:00 Period Temp Pulse Resp BP Sys/Conde Pulse Ox O2 Del Method O2 Flow Rate Last 24 Hr 98.1 F-101.5 F 62-127 12-30 90-163/49-85 85-100 Nasal Cannula- Room Air 2-2 Intake and Output 09/01/22 09/02/22 09/02/22 19:59 03:59 11:59 Intake Total 1100 300 240 Output Total 550 250 Balance 1100 -250 -10 Weight 72.575 kg 75.206 kg Intake & Output: Intake & Output 09/01/22 09/02/22 09/02/22 19:59 03:59 11:59 Intake Total 1100 300 240 Output Total 550 250 Balance 1100 -250 -10 Weight 72.575 kg 75.206 kg Intake: IV 1100 Sodium Chloride 0.9% 1,000 ml @ 1000 Wide Open IV .Q0M ONE Rx#: [id number] Oral 300 240 Output: Void Amount 550 250 Other: Meal Breakfast Percent of Meal Consumed 100% Feeding Ability Independent Stool Size Large Stool Color Brown Stool Consistency Soft # Bowel Movements 1 OBJ DATA Labs 09/02/22 05:28 09/02/22 05:28 Labs: Abnormal Lab Results 09/02/22 09/02/22 09/02/22 05:28 05:28 03:35 WBC 13.5 H RBC 3.55 L Hgb 8.6 L Hct 28.8 L MCH 24.2 L MCHC 29.9 L RDW 16.3 H Immature Gran % (Auto) 0.7 H Neut % (Auto) 82.5 H Lymph % (Auto) 7.4 L Lymph # (Auto) 1.00 L [place] # (Auto) 1.25 H Immature Gran # 0.09 H Absolute Neutrophils 11.17 H Anion Gap 5.0 L Total Protein 5.2 L Albumin 3.0 L Procalcitonin Urine Appearance Hazy A Ur Leukocyte Esterase 75 A Urine WBC 21 H Urine Bacteria Few A Urine Mucus Few A 09/01/22 09/01/22 09/01/22 22:41 15:02 15:02 WBC 12.9 H RBC Hgb 11.0 L Hct MCH 24.1 L MCHC 29.4 L RDW 16.4 H Immature Gran % (Auto) Neut % (Auto) 87.7 H Lymph % (Auto) 1.9 L Lymph # (Auto) 0.25 L [place] # (Auto) 1.24 H Immature Gran # 0.07 H Absolute Neutrophils 11.32 H Anion Gap Total Protein 5.6 L Albumin Procalcitonin 0.21 H Urine Appearance Ur Leukocyte Esterase Urine WBC Urine Bacteria Urine Mucus Meds: Medications Acetaminophen (Acetaminophen 325 Mg Tablet) 650 mg PO Q6HP PRN; Protocol PRN Reason: Per Pain Protocol/Fever > 101 Amlodipine Besylate (Amlodipine 5 Mg Tablet) 5 mg PO QDAY [facility] Last Admin: 09/02/22 08:47 Dose: 5 mg Atorvastatin Calcium (Atorvastatin 10 Mg Tablet) 10 mg PO HS [facility] Calcium Carbonate/Glycine (Calcium Carbonate 500 Mg Tab.Chew) 500 mg PO BIDP PRN PRN Reason: Indigestion Cefepime HCl (Cefepime 2 Gm Vial) 2 gm IV Q8H [facility]; Protocol Last Admin: 09/02/22 08:47 Dose: 2 gm Docusate Sodium (Docusate Sodium 100 Mg Capsule) 100 mg PO BID [facility] Last Admin: 09/02/22 08:47 Dose: 100 mg Enoxaparin Sodium (Enoxaparin 40 Mg/0.4 Ml Syringe) 40 mg SQ DAILY [facility] Last Admin: 09/02/22 08:48 Dose: 40 mg Gabapentin (Gabapentin 300 Mg Capsule) 300 mg PO TID [facility] Last Admin: 09/02/22 08:47 Dose: 300 mg Vancomycin HCl 1,000 mg/ (Sodium Chloride) 250 mls @ 250 mls/hr IV Q24H [facility] Ondansetron HCl (Ondansetron 4 Mg/2 Ml Vial) 4 mg IV Q6HP PRN PRN Reason: Nausea And Vomiting Pantoprazole Sodium (Pantoprazole 40 Mg Tablet) 40 mg PO BID [facility] Last Admin: 09/02/22 08:47 Dose: 40 mg Senna (Sennosides 1 Tablet) 2 tab PO HS [facility] Sodium Chloride (0.9 % Sodium Chloride 10 Ml Syringe) 10 ml IV Q8 [facility] Last Admin: 09/02/22 08:38 Dose: Not Given Sucralfate (Sucralfate 1 Gm/10 Ml Oral.Susp) 1 gm PO QID [facility] Last Admin: 09/02/22 08:47 Dose: 1 gm Tramadol HCl (Tramadol 50 Mg Tablet) 50 mg PO QIDP PRN PRN Reason: pain Vancomycin HCl (Vancomycin Per Pharmacy) 1 order IV UD [facility]; Protocol Vitamin D (Vitamin D3 10 Mcg Tablet) 10 mcg PO QDAY [facility] Last Admin: 09/02/22 08:48 Dose: 10 mcg A/P Narrative A/P Narrative: Assessment: 87 year old female with a history of hypertension, hyperlipidemia, peptic ulcer disease, Clostridium difficile, prior vertebral compression fractures, lumbar spinal stenosis admitted for fever, leukocytosis and a new oxygen requirement. Urinalysis suggestive of UTI however the patient does not have symptoms. The cause of the patient's hypoxia is not clear. CTA chest did not show any evidence of pulmonary embolism, there was mild patchy groundglass airspace disease that is developed in both posterior upper and lower lobes. #Possible sepsis versus SIRS #Acute hypoxic respiratory failure of uncertain etiology #Possible UTI #Essential hypertension #Hyperlipidemia #Peptic ulcer disease #Osteoporosis with history of vertebral compression fractures #Lumbar spinal stenosis Plan -Vancomycin IV and cefepime IV for now. -Oxygen supplementation, wean as able. -Follow urine and blood cultures. -Chest x-ray tomorrow. -Check BNP, consider transthoracic echocardiogram. -Continue home Norvasc, atorvastatin, Protonix, sucralfate, tramadol as needed. -Regular diet. 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
[2022-09-02] MEDS ORDERED: cefTRIAXone 2 GM in DEXTROSE 5% IN WATER 50 ML IV SCH (13:00)
[2022-09-02 13:50] LABS: Vancomycin,Random 7.4 ug/mL
[2022-09-02] MEDS ORDERED: SENNOSIDES 1 TABLET PO SCH (21:00)
[2022-09-02] MEDS ORDERED: ATORVASTATIN 10 MG TABLET PO SCH (21:00)
[2022-09-02] MEDS ORDERED: VANCOMYCIN 1,000 MG in 0.9 % SODIUM CHLORIDE 250 ML IV SCH (22:00)
[2022-09-03] MEDS: CEFEPIME 2 GM VIAL IV SCH (05:23)
[2022-09-03] MEDS: 0.9 % SODIUM CHLORIDE 10 ML SYRINGE IV SCH (05:24)
--- NOTE | 2022-09-03 06:08 | XRay Report ---
CLINICAL INFORMATION: Hypoxia follow-up bilateral groundglass airspace disease seen on CT two days prior. COMPARISON: Portable chest and chest CT 09/01/2022 TECHNIQUE: PA and Lateral views FINDINGS: The heart size, mediastinum and pulmonary vessels are unremarkable. Very minimal vague patchy airspace disease present in the peripheral left mid and both lower lungs which likely indicate residual groundglass infiltrate seen on CT. They have not progressed. There are no effusions. Severe bilateral glenohumeral degeneration noted. IMPRESSION: Minimal patchy airspace disease in the peripheral left mid and both lower lungs likely airspace disease which was seen on CT. No plain film evidence of progression. Interpreted and Authenticated by: Kishore Ann 09/03/22
[2022-09-03 06:09] LABS: Basophils # (Auto) 0.03 K/mcL (0.00-0.30); Basophils % (Auto) 0.4 % (0.0-2.0); Eosinophils # (Auto) 0.25 K/mcL (0.00-0.70); Eosinophils % (Auto) 3.2 % (0.0-7.0); Hematocrit 30.7 % (34.1-44.9); Lymphocytes # (Auto) 1.39 K/mcL (1.50-4.80); Lymphocytes % (Auto) 17.8 % (15.5-49.0); Mean Cell Volume 81.2 fL (80.0-100.0); Mean Corpuscular HGB Conc 29.3 g/dL (31.0-36.0); Mean Platelet Volume 10.1 fL (8.8-12.5); Monocytes # (Auto) 0.99 K/mcL (0.10-0.90); Monocytes % (Auto) 12.7 % (1.0-12.0); Neutrophils % (Auto) 65.5 % (38.0-78.0); Platelet Count 153 K/mcL (140-440); RBC 3.78 M/mcL (3.59-5.38); Red Cell Distribution Width 16.3 % (11.5-14.5); WBC 7.8 K/mcL (4.5-11.0)
[2022-09-03 07:00] LABS: proBNP 579.3 pg/mL (<450.0)
--- NOTE | 2022-09-03 07:06 | EKG ---
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 Measurements Intervals [place] Rate: 108 P: 50 CA: 179 QRS: 4 QRSD: 84 T: -45 QT: 306 QTc: 412 Interpretive Statements Sinus tachycardia INFERIOR INFARCT, OLD Electronically Signed On 09-03-2022 7:05:47 PDT by Kishore Tapia M.D. /store/[email or web address]/[id number]
[2022-09-03 07:11] LABS: ALT/SGPT 13 U/L (<40); AST/SGOT 14 U/L (<32); Albumin/Globulin Ratio 1.3 (1.0-2.3); Alkaline Phosphatase 84 U/L (39-117); Bilirubin,Direct < 0.2 mg/dL (0-0.3); Bilirubin,Total 0.3 mg/dL (0.1-1.0); Blood Urea Nitrogen 13 mg/dL (8-23); Calcium 9.6 mg/dL (8.6-10.4); Carbon Dioxide 24 mmol/L (22-30); Chloride 108 mmol/L (96-108); Globulin 2.3 gm/dL (2.2-3.7); Glomerular Filtration Rate 87; Glucose 82 mg/dL (70-105); Lactate Dehydrogenase 141 U/L (135-225); Phosphorous 2.3 mg/dL (2.5-4.5); Triglycerides 67 mg/dL (<150)
--- NOTE | 2022-09-03 07:51 | Discharge Summary ---
Discharge Provider Provider IMPORTANT FOLLOW-UP INFORMATION FOR PCP: Patient information: Note initiated : 09/03/22 at 7:47 am Service Date, if different from initiated Date: [] Patient: Mariella Garsia 87 y/o F admitted on 09/01/22 for weakness, shakey. Chief Complaint: [] Date of admission: 09/01/22 23:05 Discharge date: 09/03/22 Primary care physician: Shantal Rodrigez DO Consults: 09/01/22 Consult to Physician [CONS] Stat Comment: Consulting Provider: Garrison Thomas Reason For Exam: Physician to Consult COURSE Hospital Course Hospital course: Ms. Garsia is a 87 year old female with a history of hypertension, hyperlipidemia, peptic ulcer disease, Clostridium difficile, prior vertebral compression fractures, lumbar spinal stenosis who presented to the emergency department with a chief complaint of nausea, generalized weakness and chills. In the emergency department, the patient was found to have a fever and tachycardia. She also had an oxygen requirement of about 2 L/min. Work-up consisted of CBC which showed leukocytosis and increased neutrophils, renal function panel and LFTs were essentially normal, urinalysis was positive for leukocyte esterase, WBC and few bacteria, negative for urine nitrate. Chest x-ray 1 view did not show any acute cardiopulmonary disease. A CTA chest did not show any evidence of pulmonary embolism however there was mild patchy ground glass airspace disease that had developed in the posterior upper and lower lobes that could indicate edema or developing infiltrate. Patient was given IV fluid and a dose of ceftriaxone in the emergency department. Hospital medicine was consulted for admission. 09/02 Patient continued to have high-grade temperatures overnight, fevers seem to have resolved this morning. Respiratory status has improved however the patient continues on supplemental oxygen at 2 L/min. SARS-CoV-2 PCR not detected, still pending are influenza, RSV, parainfluenza, human metapneumovirus PCR results. MRSA nasal PCR negative. Leukocytosis increased modestly. Renal function and LFTs normal today. Urine and blood cultures pending. Continues on and cefepime. Discontinued IV vancomycin. 09/03 Afebrile overnight, vital stable. Patient on room air this morning and feels like she is nearly back to her baseline. SARS-CoV-2 PCR and respiratory panels were negative. Leukocytosis has resolved. Renal function and LFTs normal. NT proBNP 579. Repeat chest x-ray showed minimal patchy airspace disease in the periperipheral left mid and both lower lungs noted on the CTA chest with no plain film evidence of progression. Urine culture pending at the time of discharge. Blood cultures showing no growth to date. Discharge to home with a prescription for levofloxacin for 4 more days. Follow-up with primary care provider. Physical exam Head: Atraumatic, normal inspection. Eyes: normal appearance, no scleral icterus. Neck: full ROM Respiratory: On room air, no respiratory distress. Cardiovascular: normal rate and rhythm, S1, S2. GI/Abdominal: soft, nontender, no guarding. Extremities: full range of motion, nontender. Neurological: CN II-XII intact, intact motor, intact sensation. Psychiatric: normal mood. Skin: warm, normal color Discharge diagnosis: Probable urinary tract infection Secondary discharge diagnosis: Sepsis probably secondary to UTI Acute hypoxic respiratory failure probably secondary to sepsis Time Spent with Patient Time attestation: Total time spent providing and/or coordinating discharge services: Time spent: Less than 30 minutes EXAM Constitutional Vitals: Temp Pulse Resp BP Pulse Ox O2 Del Method O2 Flow Rate 97.3 F 80 22 142/68 94 Room Air 2 09/03/22 07:32 09/03/22 07:32 09/03/22 07:32 09/03/22 07:32 09/03/22 07:32 09/03/22 07:32 09/02/22 08:00 Discharge Data Data Completed and Pending Labs on day of discharge: Labs from last 24 hours 09/03/22 09/03/22 09/02/22 05: 05: 12:32 WBC 7.8 RBC 3.78 Hgb 9.0 L Hct 30.7 L MCV 81.2 MCH 23.8 L MCHC 29.3 L RDW 16.3 H Plt Count 153 MPV 10.1 Immature Gran % (Auto) 0.4 Neut % (Auto) 65.5 Lymph % (Auto) 17.8 [place] % (Auto) 12.7 H Eos % (Auto) 3.2 Baso % (Auto) 0.4 Lymph # (Auto) 1.39 L [place] # (Auto) 0.99 H Eos # (Auto) 0.25 Baso # (Auto) 0.03 Immature Gran # 0.03 Absolute Neutrophils 5.11 Sodium 139 Potassium 4.1 Chloride 108 Carbon Dioxide 24 Anion Gap 7.0 L BUN 13 Creatinine 0.5 L GFR Calculation 87 Glucose 82 Uric Acid 4.0 Calcium 9.6 Phosphorus 2.3 L Magnesium 1.9 Total Bilirubin 0.3 Direct Bilirubin < 0.2 GGT 8 AST 14 ALT 13 Alkaline Phosphatase 84 Lactate Dehydrogenase 141 NT-Pro-B Natriuret Pep 579.3 H Total Protein 5.3 L Albumin 3.0 L Globulin 2.3 Albumin/Globulin Ratio 1.3 Triglycerides 67 Random Vancomycin 7.4 Preliminary micro results at discharge 09/01/22 17:05 Blood Culture - Preliminary Blood 09/01/22 15:02 Blood Culture - Preliminary Blood Discharge Plan Patient/Caregiver Discharge Instructions Activity: increase activity as tolerated Diet: Regular Diet Prescriptions: New levofloxacin 750 mg tablet 750 mg PO QDAY 4 Days Qty: 4 0RF Continued pravastatin 40 mg tablet 40 mg PO QHS Qty: 90 1RF amlodipine 5 mg tablet 5 mg PO QDAY Qty: 90 1RF pantoprazole [Protonix] 20 mg tablet,delayed release (DR/EC) 40 mg PO BID Qty: 120 5RF lisinopril 40 mg tablet 40 mg PO QDAY Qty: 30 0RF aspirin 81 mg tablet,delayed release (DR/EC) 81 mg PO HS calcium carbonate 600 mg (1,500 mg) tablet 600 mg PO BID PRN (Reason: Indigestion) cholecalciferol (vitamin D3) 400 unit tablet 400 unit PO QDAY multivitamin 1 each PO QDAY sucralfate 100 mg/mL suspension 5 ml PO QID Qty: 1000 5RF Rx Instructions: swish in mouth and swallow; use after food/drink gabapentin 300 mg capsule 300 mg PO TID Qty: 90 2RF acetaminophen [Tylenol] 325 mg tablet 650 mg PO Q6H PRN (Reason: Back Pain) tramadol 50 mg tablet 50 mg PO QID PRN (Reason: pain) Qty: 120 2RF Follow Up Plan Follow up with: Shantal Rodrigez DO [Primary Care Provider] - Patient Disposition: Home, Self-Care Prognosis: Fair Overall status at discharge: patient is progressing back to baseline Discharge Orders: Discharge Order (Routine); Ordered 09/03/22 Ordered By: Garrison Thomas
[2022-09-03] MEDS: ENOXAPARIN 40 MG/0.4 ML SYRINGE SQ SCH (09:01)
[2022-09-03] MEDS: amLODIPine 5 MG TABLET PO SCH (09:01)
[2022-09-03] MEDS: DOCUSATE SODIUM 100 MG CAPSULE PO SCH (09:01)
[2022-09-03] MEDS: PANTOPRAZOLE 40 MG TABLET PO SCH (09:01)
[2022-09-03] MEDS: SUCRALFATE 1 GM/10 ML ORAL.SUSP PO SCH ×2 (09:01→12:57)
[2022-09-03] MEDS: VITAMIN D3 10 MCG TABLET PO SCH (09:01)
[2022-09-03] MEDS: GABAPENTIN 300 MG CAPSULE PO SCH (09:01)
== END 2022-09-03 13:15 | disposition home or self-care (01) | DRG 871 ==
LOC: ED 16:32 → MEDSUR 23:05
PROVIDERS: ADMIT Internal Medicine; ATTEND Internal Medicine